=== PATIENT | female | born 1985 | race Caucasian/White ===

== ENCOUNTER 2017-10-31 11:54 | Emergency (ER) | payer OTHER ==
[~2017-10-31] VITALS: Ht 149.9 cm; Wt 72.6 kg
[2017-11-01] MEDS ORDERED: IBUPROFEN800 MG (11:01)
== END 2017-10-31 13:31 | disposition home or self-care (01) ==
LOC: EDBD 11:54 → ER 11:54 → EDBD 12:04 → ER 13:31
DX: M62.830 Muscle spasm of back (principal); M54.89 Other dorsalgia

== ENCOUNTER 2017-11-01 10:52 | Emergency (ER) | payer OTHER ==
[~2017-11-01] VITALS: Ht 149.9 cm; Wt 72.6 kg
[2017-11-01] MEDS ORDERED: IBUPROFEN800 MG (11:01)
== END 2017-11-01 16:52 | disposition home or self-care (01) ==
LOC: EDBD 10:52 → ER 10:52
DX: R10.11 Right upper quadrant pain (principal); R19.7 Diarrhea, unspecified

== ENCOUNTER 2017-12-08 19:36 | Emergency (ER) | payer OTHER ==
[~2017-12-08] VITALS: Ht 149.9 cm; Wt 72.6 kg
[~2017-12-08 19:36] MED LIST: IBUPROFEN800 MG
== END 2017-12-08 22:24 | disposition home or self-care (01) ==
LOC: ER 19:36
DX: J03.80 Acute tonsillitis due to other specified organisms (principal); H65.192 Other acute nonsuppurative otitis media, left ear; R07.0 Pain in throat

== ENCOUNTER 2019-04-18 12:40 | Emergency (ER) | payer OTHER ==
[~2019-04-18] VITALS: Ht 147.3 cm; Wt 78.9 kg
== END 2019-04-18 16:40 | disposition home or self-care (01) ==
LOC: ER 12:40
DX: M94.0 Chondrocostal junction syndrome [Tietze] (principal)

== ENCOUNTER 2021-03-04 14:25 | Outpatient (CLI) | payer BC | END 2021-03-04 14:27 | disposition home or self-care (01) | LOC: SONOGRAMA 14:25 | PROVIDERS: ATTEND Specialist | DX: D25.1 Intramural leiomyoma of uterus (principal); R10.2 Pelvic and perineal pain ==